=== PATIENT | male | born 1985 | race Caucasian/White ===

== ENCOUNTER → 2024-12-14 | Outpatient (REF) | payer OTHER | LOC: M LAB REF 15:24 | PROVIDERS: ATTEND Physician Assistant | DX: J02.9 Acute pharyngitis, unspecified (principal) ==

== ENCOUNTER → 2025-07-23 | Outpatient (CLI) | payer OTHER | LOC: M RAD 08:27 | PROVIDERS: ATTEND Physician Assistant Medical | DX: G44.89 Other headache syndrome (principal); J32.8 Other chronic sinusitis; J34.2 Deviated nasal septum ==